=== PATIENT | female | born 1940 | race Caucasian/White ===

== ENCOUNTER 2018-01-25 02:46 | Emergency (ER) | payer OTHER ==
[~2018-01-25] VITALS: Ht 160 cm; Wt 54.4 kg
[~2018-01-25 02:46] MED LIST: KEPPRA250 MG PO; TENORMIN25 MG PO
[2018-01-25] MEDS ORDERED: LOSARTAN POTAS100 MG (02:52)
[2018-01-25] MEDS ORDERED: NORVASC5 MG PO (07:28)
== END 2018-01-25 07:41 | disposition home or self-care (01) ==
LOC: ER 02:46
DX: I16.0 Hypertensive urgency (principal); I10 Essential (primary) hypertension

== ENCOUNTER 2018-02-03 01:34 | Emergency (ER) | payer OTHER ==
[~2018-02-03] VITALS: Ht 160 cm; Wt 54.4 kg
[~2018-02-03 01:34] MED LIST changes: +LOSARTAN POTAS100 MG; +NORVASC5 MG PO
== END 2018-02-03 06:06 ==
LOC: ER 01:34
DX: I16.0 Hypertensive urgency (principal); I10 Essential (primary) hypertension

== ENCOUNTER 2020-01-19 10:49 | Outpatient (CLI) | payer OTHER | END 2020-01-19 10:52 | disposition home or self-care (01) | LOC: SONOGRAMA 10:49 | PROVIDERS: ATTEND Pathology Anatomic Pathology & Clinical Pathology | DX: D34 Benign neoplasm of thyroid gland (principal); E04.1 Nontoxic single thyroid nodule; E04.8 Other specified nontoxic goiter ==

== ENCOUNTER 2022-04-27 14:33 | Emergency (ER) | payer OTHER ==
[~2022-04-27] VITALS: Ht 160 cm; Wt 51.7 kg
[2022-04-27] MEDS ORDERED: OLMESARTAN MEDO40 MG PO (14:38)
[2022-04-27] MEDS ORDERED: ASA81 MG PO (14:39)
[2022-04-27] MEDS ORDERED: LIPITOR40 M1 PO (14:39)
[2022-04-27] MEDS ORDERED: NIFEDIPINE20 MG PO (14:39)
[2022-04-27] MEDS ORDERED: SINGULAIR4 M1 PO (14:40)
== END 2022-04-27 18:14 | disposition home or self-care (01) ==
LOC: ER 14:33
DX: R07.89 Other chest pain (principal); I10 Essential (primary) hypertension; Z20.822 Contact with and (suspected) exposure to COVID-19